=== PATIENT | female | born 1980 | race Caucasian/White ===

== ENCOUNTER 2019-08-01 21:53 | Emergency (ER) | payer MEDICAID, OTHER ==
[~2019-08-01] VITALS: Ht 157.5 cm; Wt 68.2 kg
[~2019-08-01 21:53] MED LIST: ADV50250 IH; ALB0.5UD NEB; LEVA15HF4 IH
[2019-08-01 22:05] VITALS: BP 160/102
[2019-08-01] MEDS ORDERED: AMOX500C2 PO (22:52)
[2019-08-01] MEDS ORDERED: HYDR-3965 PO (22:52)
[2019-08-01] MEDS ORDERED: ONDA4TAB6 PO (22:52)
[2019-08-01] MEDS ORDERED: ketorolac tromethamine 15mg/ml inj. IM ONE (22:55)
[2019-08-01] MEDS ORDERED: acetaminophen 325mg tablet PO ONE (22:55)
[2019-08-01] MEDS ORDERED: PRED20TA PO (22:57)
== END 2019-08-01 23:06 | disposition home or self-care (01) ==
LOC: ER 21:53
DX: K02.9 Dental caries, unspecified (principal); K04.7 Periapical abscess without sinus; J45.909 Unspecified asthma, uncomplicated; F15.90 Other stimulant use, unspecified, uncomplicated; Z59.0 Homelessness; Z56.0 Unemployment, unspecified; Z79.899 Other long term (current) drug therapy
CPT/HCPCS: 96372; 99283; J1885

== ENCOUNTER 2019-11-25 06:04 | Emergency (ER) | payer MEDICAID, OTHER ==
[~2019-11-25] VITALS: Ht 157.5 cm; Wt 61.4 kg
[~2019-11-25 06:04] MED LIST changes: +ONDA4TAB6 PO
[2019-11-25 06:06] VITALS: BP 130/82
[2019-11-25] MEDS ORDERED: azithromycin 250mg tablet PO ONE (06:45)
[2019-11-25] MEDS ORDERED: CefTRIAXone 1000mg IM Kit (w/lidocaine diluent) IM ONE (06:45)
[2019-11-25 07:17] LABS: CLARITY,URINE CLOUDY (Clear); COLOR,URINE YELLOW (Yellow); GLUCOSE, URINE NEGATIVE (Neg); KETONES,URINE NEGATIVE (Neg); LEUKOCYTE ESTERASE ,URINE LARGE (Neg); NITRITES, URINE NEGATIVE (Neg); OCCULT BLOOD,URINE NEGATIVE (Neg); PH,URINE 7.5 (4.8-8.0); PROTEIN,URINE NEGATIVE (Neg)
[2019-11-25 07:23] LABS: UA COLLECTION TYPE CLN CATCH MIDSTREAM
[2019-11-25 07:25] LABS: TRICHOMONAS,URINE MOD /HPF (NEGATIVE)
[2019-11-25 07:26] LABS: BACTERIA,URINE 3+ /HPF (Neg); MUCUS STRANDS MANY /LPF (Neg); RBC,URINE 0-2 /HPF (0-2); SQUAMOUS EPITHELIAL CELL,UR MANY /LPF (FEW)
[2019-11-25] MEDS ORDERED: ACYC-202 PO (08:43)
== END 2019-11-25 08:48 | disposition home or self-care (01) ==
LOC: ER 06:05
DX: B00.9 Herpesviral infection, unspecified (principal); N89.8 Other specified noninflammatory disorders of vagina; J45.909 Unspecified asthma, uncomplicated; F15.90 Other stimulant use, unspecified, uncomplicated; R30.0 Dysuria; Z98.51 Tubal ligation status; Z20.2 Contact with and (suspected) exposure to infections with a predominantly sexual mode of transmission; Z59.0 Homelessness; Z56.0 Unemployment, unspecified; Z79.899 Other long term (current) drug therapy
CPT/HCPCS: 36415; 81001; 86696; 87210; 87491; 87591; 96372; 99283; J0696

== ENCOUNTER 2022-09-26 05:16 | Emergency (ER) | payer MEDICAID, OTHER ==
[~2022-09-26] VITALS: Ht 157.5 cm; Wt 72.7 kg
[~2022-09-26 05:16] MED LIST changes: +NYST1POW5 TOP
[2022-09-26 06:29] LABS: CLARITY,URINE SLIGHTLY CLOUDY (Clear); COLOR,URINE YELLOW (Yellow); GLUCOSE, URINE NEGATIVE (Neg); KETONES,URINE NEGATIVE (Neg); LEUKOCYTE ESTERASE ,URINE NEGATIVE (Neg); NITRITES, URINE NEGATIVE (Neg); OCCULT BLOOD,URINE LARGE (Neg); PROTEIN,URINE >=300 mg/dl (Neg); UROBILINOGEN,URINE 0.2 E.U/dL (0.2-1.0)
[2022-09-26 06:35] LABS: UA COLLECTION TYPE CLN CATCH MIDSTREAM
[2022-09-26 06:37] LABS: SQUAMOUS EPITHELIAL CELL,UR FEW /LPF (FEW)
[2022-09-26 06:39] LABS: RBC,URINE TNTC /HPF (0-2); WBC,URINE 0-4 /HPF (0-4)
[2022-09-26 06:40] LABS: BACTERIA,URINE 1+ /HPF (Neg)
[2022-09-26] MEDS ORDERED: acetaminophen 325mg tablet PO STA (06:53)
[2022-09-26] MEDS ORDERED: ondansetron/PF 4mg/2ml inj IV ONE (06:55)
[2022-09-26] MEDS ORDERED: CefTRIAXone/D5W-Rocephin 1gm 50 ML IV ONE (07:00)
[2022-09-26 07:30] LABS: BASOPHILS % (AUTO) 0.4 % (0-1); EOSINOPHILS % (AUTO) 0.1 % (0-6); HEMATOCRIT 50.6 % (35.0-45.0); HEMOGLOBIN 16.6 g/dl (12.0-16.0); LYMPHOCYTES # (AUTO) 1.2 X10'3 (1.1-4.8); LYMPHOCYTES % (AUTO) 15.3 % (21-51); MEAN CORPUSCULAR HEMOGLOBIN 30.7 PG (27.0-31.0); MEAN CORPUSCULAR HGB CONC 32.8 g/dL (33.0-36.5); MEAN CORPUSCULAR VOLUME 93.5 FL (78-98); MEAN PLATELET VOLUME 10.1 FL (7.4-10.4); MONOCYTES # (AUTO) 1.1 X10'3 (0-0.9); MONOCYTES % (AUTO) 13.4 % (2-12); NEUTROPHILS # (AUTO) 5.7 X10'3 (1.8-7.7); NEUTROPHILS % (AUTO) 70.8 % (42-75); PLATELET COUNT 137 X10'3 (140-440); RED BLOOD COUNT 5.42 X10'6 (4.20-5.60); RED CELL DISTRIBUTION WIDTH 15.4 % (11.5-14.5)
[2022-09-26 07:49] LABS: ALANINE AMINOTRANSFERASE 35 U/L (12-78); ALBUMIN 2.8 G/DL (3.4-5.0); ALBUMIN/GLOBULIN RATIO 0.8 (1.1-1.5); ALKALINE PHOSPHATASE 122 IU/L (46-116); ANION GAP 10 (8-16); ASPARTATE AMINO TRANSFERASE 56 U/L (10-37); BILIRUBIN,TOTAL 0.6 MG/DL (0.1-1.0); BLOOD UREA NITROGEN 16 MG/DL (7-18); BUN/CREATININE RATIO 15.2 (6.6-38.0); CALCIUM 7.9 MG/DL (8.5-10.1); CHLORIDE 100 MMOL/L (99-107); CREATININE 1.05 MG/DL (0.40-0.90); GLUCOSE 98 MG/DL (70-104); POTASSIUM 4.3 MMOL/L (3.5-5.1); SODIUM 131 MMOL/L (135-145); TOTAL PROTEIN 6.5 G/DL (6.4-8.2); eGFR 58 ML/MIN
[2022-09-26 07:53] LABS: MAGNESIUM 1.4 MG/DL (1.5-2.4)
[2022-09-26 10:15] VITALS: BP 146/98
== END 2022-09-26 10:38 | disposition home or self-care (01) ==
LOC: ER 05:16
DX: J10.1 Influenza due to other identified influenza virus with other respiratory manifestations (principal); Z20.822 Contact with and (suspected) exposure to COVID-19; M79.18 Myalgia, other site; R51.9 Headache, unspecified; J45.909 Unspecified asthma, uncomplicated; F15.20 Other stimulant dependence, uncomplicated; Z98.51 Tubal ligation status; Z59.00 Homelessness unspecified; Z56.0 Unemployment, unspecified
CPT/HCPCS: 36415; 71045; 80053; 81001; 83605; 83735; 83880; 84145; 85025; 87040; 87502; 87503; 87635; 93005; 96365; 96366; 96375; 99285; C9803; J0696; J2405; J7030

== ENCOUNTER 2022-12-16 20:19 | Emergency (ER) | payer MEDICAID ==
[~2022-12-16] VITALS: Ht 157.5 cm; Wt 65.9 kg
[2022-12-16 20:42] LABS: BASOPHILS # (AUTO) 0.1 X10'3 (0-0.2); BASOPHILS % (AUTO) 0.9 % (0-1); EOSINOPHILS # (AUTO) 0.1 X10'3 (0-0.9); EOSINOPHILS % (AUTO) 1.4 % (0-6); HEMOGLOBIN 17.9 g/dl (12.0-16.0); LYMPHOCYTES # (AUTO) 1.7 X10'3 (1.1-4.8); LYMPHOCYTES % (AUTO) 24.5 % (21-51); MEAN CORPUSCULAR HEMOGLOBIN 32.2 PG (27.0-31.0); MEAN CORPUSCULAR HGB CONC 33.8 g/dL (33.0-36.5); MEAN PLATELET VOLUME 9.5 FL (7.4-10.4); MONOCYTES # (AUTO) 0.6 X10'3 (0-0.9); MONOCYTES % (AUTO) 8.8 % (2-12); NEUTROPHILS # (AUTO) 4.4 X10'3 (1.8-7.7); NEUTROPHILS % (AUTO) 64.4 % (42-75); PLATELET COUNT 211 X10'3 (140-440); RED BLOOD COUNT 5.58 X10'6 (4.20-5.60); RED CELL DISTRIBUTION WIDTH 15.4 % (11.5-14.5); WHITE BLOOD COUNT 6.8 X10'3 (4.5-11.0)
[2022-12-16] MEDS ORDERED: ipratropium/albuterol 3ml nebule NEB ONE (20:45)
[2022-12-16] MEDS ORDERED: albuterol 2.5 MG/3 ML nebule CONTNEB ONE (20:45)
[2022-12-16] MEDS ORDERED: methylPREDNISolone sod succ 125mg/2ml vial IV ONE (21:00)
[2022-12-16] MEDS ORDERED: furosemide 40mg/4ml inj IV ONE (21:00)
[2022-12-16 21:46] LABS: ALANINE AMINOTRANSFERASE 44 U/L (12-78); ALBUMIN 2.7 G/DL (3.4-5.0); ALBUMIN/GLOBULIN RATIO 0.6 (1.1-1.5); ALKALINE PHOSPHATASE 156 IU/L (46-116); ANION GAP 6 (8-16); ASPARTATE AMINO TRANSFERASE 74 U/L (10-37); BILIRUBIN,TOTAL 0.6 MG/DL (0.1-1.0); BLOOD UREA NITROGEN 19 MG/DL (7-18); BUN/CREATININE RATIO 16.7 (6.6-38.0); CALCIUM 8.7 MG/DL (8.5-10.1); CHLORIDE 104 MMOL/L (99-107); CREATININE 1.14 MG/DL (0.40-0.90); GLUCOSE 102 MG/DL (70-104); MAGNESIUM 1.6 MG/DL (1.5-2.4); POTASSIUM 4.2 MMOL/L (3.5-5.1); SODIUM 136 MMOL/L (135-145); TOTAL CARBON DIOXIDE 25.7 MMOL/L (24-32); TOTAL PROTEIN 6.9 G/DL (6.4-8.2); eGFR 53 ML/MIN
--- NOTE | 2022-12-16 21:49 | NUR ---
AWARE OF HYPERTENSION
[2022-12-16] MEDS ORDERED: FURO-150 PO (22:05)
[2022-12-16] MEDS ORDERED: FLUT1DIS20 INH (22:05)
[2022-12-16] MEDS ORDERED: PRED20TA PO (22:05)
[2022-12-16] MEDS ORDERED: LOSA50TA64 PO (22:05)
[2022-12-16] MEDS ORDERED: MAGN64TA8 PO (22:05)
[2022-12-16] MEDS ORDERED: ALBU8HFA PO (22:05)
--- NOTE | 2022-12-16 22:31 | NUR ---
Spoke with MD Levy regarding patient elevated troponin. Advised to have one more troponin drawn two hours from last draw to re-evaluate patient. Labs retimed per MD order.
[2022-12-16 22:35] VITALS: BP 189/136
--- NOTE | 2022-12-16 22:35 | NUR ---
Patient informed not to leave per MD ordering additional troponins. Patient extremely upset, education provided to patient about importance of additional lab work-up. Patient back in bed.
--- NOTE | 2022-12-16 23:20 | NUR ---
LAB REPORTED PT NOT IN BED FOR SECOND LAB DRAW. PT ELOPED PRIOR TO TX AND D/C
== END 2022-12-16 23:37 | disposition left against medical advice (07) ==
LOC: ER 20:19
DX: J44.1 Chronic obstructive pulmonary disease with (acute) exacerbation (principal); R05.9 Cough, unspecified; R07.89 Other chest pain; F17.200 Nicotine dependence, unspecified, uncomplicated; F15.90 Other stimulant use, unspecified, uncomplicated; Z98.51 Tubal ligation status; Z56.0 Unemployment, unspecified; Z59.00 Homelessness unspecified; Z79.899 Other long term (current) drug therapy
CPT/HCPCS: 36415; 71045; 80053; 83735; 83880; 84484; 85025; 93005; 94640; 94644; 96374; 96375; 99285; J1940; J2930; 94760